=== PATIENT | female | born 1980 | race Caucasian/White ===

== ENCOUNTER 2016-09-10 16:54 | Emergency (ER) | payer BC ==
[~2016-09-10 16:54] MED LIST: DULCOLAX5 MG PO; FOLIC ACID 2.51 EACH PO; IRON1 TA1 PO; MOTRIN800 MG PO; OXYCODONE/APAP PO; PRENATAL1 EACH PO; SURFAK240 M1 PO
[2016-09-10] MEDS ORDERED: NUVARING VAGIN1 EACH VG (17:09)
== END 2016-09-10 17:49 ==
LOC: EDMED 16:54
DX: J39.2 Other diseases of pharynx (principal)